=== PATIENT | female | born 2000 | race Caucasian/White ===

== ENCOUNTER 2019-02-10 16:57 | Emergency (ER) | payer OTHER ==
[~2019-02-10] VITALS: Ht 157.5 cm; Wt 85.3 kg
[2019-02-10 17:22] VITALS: BP 111/72
[2019-02-10] MEDS ORDERED: ONDANSETRON 4 MG ODT PO ONE (18:10)
[2019-02-10] MEDS ORDERED: FAMOTIDINE 20 MG TAB PO ONE (18:10)
[2019-02-10] MEDS ORDERED: PROCHLORPERAZINE 5 MG TAB PO ONE (18:10)
--- NOTE | 2019-02-10 18:12 | NUR ---
PATIENT PRESENTS TO ED WITH c/o intermittent nausea / vomiting x 2 days---moreso in the morning denies etoh abuse o drug use---unsure if . SKIN IS PINK/WARM/DRY; AAOX4 WITH EVEN AND STEADY GAIT; LUNGS CLEAR BL; HR EVEN AND REGULAR; PT DENIES ANY FEVER, CP, SOB, OR COUGH AT THIS TIME; PATIENT STATES PAIN OF 0/10 AT THIS TIME; VSS; PATIENT POSITIONED FOR COMFORT; HOB ELEVATED; BEDRAILS UP X2; BED DOWN. ER MD MADE AWARE OF PT STATUS.
--- NOTE | 2019-02-10 19:18 | NUR ---
Patient discharged with v/s stable. Written and verbal after care instructions given and explained. Patient alert, oriented and verbalized understanding of instructions. Ambulatory with steady gait. All questions addressed prior to discharge. ID band removed. Patient advised to follow up with PMD. Rx of COMPAZINE given. Patient educated on indication of medication including possible reaction and side effects. Opportunity to ask questions provided and answered.
[2019-02-10 19:19] VITALS: BP 119/64
== END 2019-02-10 19:19 | disposition home or self-care (01) ==
LOC: MED 16:57
DX: K29.70 Gastritis, unspecified, without bleeding (principal); J45.909 Unspecified asthma, uncomplicated; Z90.49 Acquired absence of other specified parts of digestive tract
CPT/HCPCS: 81002; 81025; 99284; Q0162; Q0164

== ENCOUNTER 2019-03-02 23:27 | Emergency (ER) | payer OTHER ==
[~2019-03-02] VITALS: Ht 160 cm; Wt 85.7 kg
[2019-03-02 23:31] VITALS: BP 115/65
--- NOTE | 2019-03-02 23:37 | NUR ---
PT AMBULATED TO THE RESTROOM, AND TO BED #3
--- NOTE | 2019-03-03 | NUR ---
PT BIB SELF C/O RIGHT HAND RING FINGER PAIN AND LOWER BACK PAIN. PT STATES SHE HIT HER RIGHT HAND ON STAIR [place] TODAY AND LOWER BACK PAIN X4 YEARS BUT HURTS MORE TODAY. PT STATES 10/10 LOWER BACK PAIN; DENIES TRAUMA OR INJURY. PT ACTING APPROPRIATLY. POSITIONED FOR COMFORT. BREATHING EQUAL AND UNLABORED. ER MD AWARE OF PT STATUS. WILL CONTINUE TO MONITOR. PMH: ASTHMA
[2019-03-03 00:29] LABS: APPEARANCE,URINE CLEAR (CLEAR); BILIRUBIN,URINE NEGATIVE (NEGATIVE); BLOOD, URINE NEGATIVE (NEGATIVE); COLOR,URINE YELLOW (YELLOW); LEUKOCYTE ESTERASE ,URINE NEGATIVE (NEGATIVE); NITRITE, URINE NEGATIVE (NEGATIVE); UGLUCOSE NEGATIVE (NEGATIVE)
[2019-03-03 00:34] LABS: BARBITURATE, URINE NEG. ng/ml (NEG <=200); BENZODIAZEPINE, URINE NEG. ng/mL (NEG <=200); CANNABINOID, URINE NEG. ng/mL (NEG <=50); COCAINE, URINE NEG. ng/mL (NEG <=300); OPIATE, URINE NEG. ng/mL (NEG <=2000); PHENCYCLIDINE SCREEN,URINE NEG. ng/mL (NEG <=25)
[2019-03-03] MEDS ORDERED: traMADol 50 MG TAB PO ONE (01:45)
[2019-03-03 03:05] VITALS: BP 116/64
== END 2019-03-03 03:05 | disposition home or self-care (01) ==
LOC: MED 23:27
DX: S63.614A Unspecified sprain of right ring finger, initial encounter (principal); M54.9 Dorsalgia, unspecified; G89.29 Other chronic pain; J45.909 Unspecified asthma, uncomplicated; V09.9XXA Pedestrian injured in unspecified transport accident, initial encounter; Y93.01 Activity, walking, marching and hiking; Y92.89 Other specified places as the place of occurrence of the external cause; Y99.8 Other external cause status
CPT/HCPCS: 73130; 80305; 81003; 81025; 99284

== ENCOUNTER 2019-03-05 22:52 | Emergency (ER) | payer OTHER ==
[~2019-03-05] VITALS: Ht 160 cm; Wt 85.7 kg
[2019-03-05 22:56] VITALS: BP 110/68
--- NOTE | 2019-03-05 22:59 | NUR ---
PT AMBULATED TO BED 11. PROVIDED WITH URINE CUP.
--- NOTE | 2019-03-05 23:24 | NUR ---
PATIENT PRESENTS TO ED WITH C/O BACK PAIN X 2 WEEKS, PATIENT DENIES ANY INJURY, NO TRAUMA OR FALL . PT DENIES N/V/D; SKIN IS PINK/WARM/DRY; AAOX4 WITH EVEN AND STEADY GAIT; LUNGS CLEAR BL; HR EVEN AND REGULAR; PT DENIES ANY FEVER, CP, SOB, OR COUGH AT THIS TIME; PATIENT STATES PAIN OF 10/10 AT THIS TIME; VSS; PATIENT POSITIONED FOR COMFORT; HOB ELEVATED; BEDRAILS UP X2; BED DOWN. ER MD MADE AWARE OF PT STATUS.
[2019-03-05] MEDS ORDERED: MORPHINE SULFATE 4 MG/ML SYR IM ONE (23:35)
[2019-03-06 00:12] VITALS: BP 117/67
== END 2019-03-06 00:11 | disposition home or self-care (01) ==
LOC: MED 22:52
DX: M54.5 Low back pain (principal); J45.909 Unspecified asthma, uncomplicated; Z90.49 Acquired absence of other specified parts of digestive tract
CPT/HCPCS: 81002; 81025; 96372; 99283; J2270

== ENCOUNTER 2019-10-04 01:04 | Emergency (ER) | payer OTHER ==
[~2019-10-04] VITALS: Ht 157.5 cm; Wt 83.9 kg
[2019-10-04 01:10] VITALS: BP 139/77
--- NOTE | 2019-10-04 02:18 | NUR ---
PT AMBULATED TO BED #2
[2019-10-04] MEDS ORDERED: KETOROLAC 60 MG/2 ML VIAL IM ONE (02:50)
--- NOTE | 2019-10-04 03:03 | NUR ---
18 Y/O FEMALE, PRESENTS TO ED C/O SOB X1 WEEK. PT STATES SOB WORSENED TODAY. HX OF ASTHMA, TAKES INHALER BUT LITTLE EFFECT. LUNG SOUNDS BILAT CLEAR. NO SIGNS OF DIFFICULTY BREATHING DURING ASSESSMENT. PT C/O BILAT LEG PAIN, 10/10. ABLE TO AMBULATE WITH STEADY GAIT BUT WITH PAIN. NO TINGLING SENSATION, NONRADIATING. NO MEDICATIONS TAKEN PRIOR TO COMING TO ED. PT VSS. ERMD AWARE. WILL CONTINUE TO MONITOR.
[2019-10-04 03:09] LABS: BASOPHILS # (AUTO) 0.1 K/uL (0.00-0.22); BASOPHILS % (AUTO) 0.5 % (0.0-2.0); EOSINOPHILS % (AUTO) 8.9 % (0.0-4.0); HEMATOCRIT 40.1 % (36-48); HEMOGLOBIN 13.4 g/dL (12.0-16.0); LYMPHOCYTES # (AUTO) 5.1 K/uL (2.5-16.5); LYMPHOCYTES % (AUTO) 43.4 % (20.5-51.1); MEAN CORPUSCULAR HEMOGLOBIN 28 pg (27-31); MEAN CORPUSCULAR HGB CONC 33 g/dL (33-37); MEAN CORPUSCULAR VOLUME 84.9 fL (80-94); MONOCYTES # (AUTO) 0.7 K/uL (0.8-1.0); NEUTROPHILS # (AUTO) 4.8 K/uL (1.8-7.7); NEUTROPHILS % (AUTO) 41.2 % (42.2-75.2); PLATELET COUNT (AUTO) 275 K/uL (140-450); RED BLOOD CELL COUNT(AUTO) 4.73 MIL/uL (4.20-5.40); RED CELL DISTRIBUTION WIDTH 16.4 % (11.6-13.7); WHITE BLOOD COUNT (AUTO) 11.7 K/uL (4.5-11.0)
[2019-10-04 03:18] LABS: ANION GAP 11.9 (8-16); CARBON DIOXIDE 28.1 mmol/L (21-32); CREATININE 0.6 mg/dL (0.6-1.3)
[2019-10-04 03:25] LABS: TOTAL BILIRUBIN 0.2 mg/dL (0.0-1.0)
[2019-10-04 03:47] VITALS: BP 131/65
--- NOTE | 2019-10-04 03:47 | NUR ---
PT DISCHARGED WITH PAPERWORK. EDUCATED PT REGARDING MEDICATION AND D/C DIAGNOSIS. PT VERBALIZED UNDERSTANDING. TOLD PT TO FOLLOW UP WITH PCP AND WHEN TO RETURN TO ED. PT AT STABLE CONDITION. NO SOB/DIFFICULTY BREATHING. ALL QUESTIONS ANSWERED.
== END 2019-10-04 03:47 | disposition home or self-care (01) ==
LOC: MED 01:04
DX: M79.605 Pain in left leg (principal); M79.604 Pain in right leg; J45.909 Unspecified asthma, uncomplicated; M79.10 Myalgia, unspecified site
CPT/HCPCS: 36415; 80053; 82550; 85025; 96372; 99283; J1885